=== PATIENT | female | born 1945 | race Hispanic/Latino ===

== ENCOUNTER 2018-05-26 09:49 | Day surgery (SDC) | payer MEDICARE ==
[2018-05-24 15:36] VITALS: BMI 31.7
[2018-05-26] MEDS ORDERED: Propofol 10 mg/ml Inj (20 ML) ONE (10:30)
[2018-05-26 11:54] VITALS: O2SAT 99
[2018-05-26] MEDS ORDERED: Sodium Chloride 0.9% 1,000 ML IV SCH (13:00)
[2018-05-26 13:05] VITALS: BP 156/85; PULSE 66; RESP 18; TEMP 97.9
== END 2018-05-26 13:11 | disposition home or self-care (01) ==
LOC: ENDO 09:49
PROVIDERS: ATTEND Specialist
DX: Z12.11 Encounter for screening for malignant neoplasm of colon (principal); D12.2 Benign neoplasm of ascending colon; K57.30 Diverticulosis of large intestine without perforation or abscess without bleeding; K64.8 Other hemorrhoids; D64.9 Anemia, unspecified; I10 Essential (primary) hypertension; E11.9 Type 2 diabetes mellitus without complications; Z88.8 Allergy status to other drugs, medicaments and biological substances
CPT/HCPCS: 45380; 88305; J2001; J2704; J7030